=== PATIENT | male | born 1980 ===

== ENCOUNTER 2019-03-14 11:23 | Emergency (ER) | payer OTHER ==
[2019-03-14 11:29] VITALS: TEMP 98.4; O2SAT 100
[2019-03-14] MEDS ORDERED: Iohexol 240 (50 ml) PO STA (12:51)
[2019-03-14] MEDS ORDERED: Iohexol 240 (50 ml) ONE (13:26)
[2019-03-14 13:33] LABS: BASO # 0.1 K/uL (0.0-0.2); BASO % 1.1 % (0.0-2.0); EOS # 0.1 K/uL (0.0-0.7); EOS % 2.1 % (0.0-4.0); HEMOGLOBIN 16.2 g/dL (12.0-18.0); LYMPH # 1.1 K/uL (1.0-4.3); LYMPH % 20.2 % (20.0-40.0); MEAN CELL VOLUME 88.2 fl (80.0-94.0); MEAN CORPUSCULAR HEMOGLOBIN 30.4 pg (27.0-31.0); MEAN CORPUSCULAR HGB CONC 34.5 g/dL (33.0-37.0); MEAN PLATELET VOLUME 9.8 fl (7.2-11.7); MONO # 0.4 K/uL (0.0-0.8); MONO % 6.7 % (0.0-10.0); NEUT # 3.8 K/uL (1.8-7.0); NEUT % 69.9 % (50.0-75.0); NRBC % 0.1 % (0.0-0.0); RBC 5.32 Mil/uL (4.40-5.90); RED CELL DISTRIBUTION WIDTH 12.6 % (11.5-14.5); WHITE BLOOD COUNT 5.5 K/uL (4.8-10.8)
[2019-03-14 13:42] LABS: ALB/GLOB RATIO 1.5 (1.0-2.1); ALBUMIN 4.5 g/dL (3.5-5.0); ALT/SGPT 92 U/L (21-72); AST/SGOT 34 U/L (17-59); BLOOD UREA NITROGEN 10 mg/dl (9-20); CALCIUM 9.3 mg/dL (8.4-10.2); GFR NON-AFRICAN AMERICAN > 60; LIPASE 90 U/L (23-300)
--- NOTE | 2019-03-14 14:51 | ED PDOC ---
HPI: Abdomen Time Seen by Provider: 03/14/19 11:39 Chief Complaint (Nursing): GI Problem Chief Complaint (Provider): abdominal pain and nausea History Per: Patient History/Exam Limitations: no limitations Additional Complaint(s): 38 y/o M with hx of schizophrenia who presents with intermittent abdominal pain for the past 2 months, worse over the past 4 days. Patient states that he had 4 episodes of bright red blood per rectum both in toilet and on toilet paper 4 days ago. STates that he had some pain with defecation and occasionally has constipation. Denies dizziness, SOB, C/P,recent unintentional weight loss. He has had intermittent abdominal pain for the past 2 months that has occurred more frequently for the past 4 days. Also states that he has a little bit of pink area at urethra on his penis. Denies ulceration, hx of STDs. Would like to be tested for HIV. Past Medical History Reviewed: Historical Data, Nursing Documentation, Vital Signs Vital Signs: Last Vital Signs Temp 98.4 F 03/14/19 11:28 Pulse 83 03/14/19 11:28 Resp 15 03/14/19 11:28 BP 142/83 03/14/19 11:28 Pulse Ox 100 03/14/19 11:28 Primary Care Provider: Doctor[facility] - Medical History PMH: Schizophrenia - Surgical History Surgical History: No Surg Hx - Family History Family History: States: Unknown Family Hx - Home Medications Home Medications: Ambulatory Orders Medication Instructions Recorded Docusate Sodium [Colace] 100 mg PO Q8 PRN 7 Days capsule 03/14/19 - Allergies Allergies/Adverse Reactions: Allergies Allergy/AdvReac Type Severity Reaction Status Date / Time No Known Allergies Allergy Verified 03/14/19 11:28 Review of Systems Constitutional: Negative for: Fever, Chills Gastrointestinal: Positive for: Abdominal Pain, Hematochezia. Negative for: Nausea, Vomiting, Diarrhea Physical Exam - Reviewed Nursing Documentation Reviewed: Yes Vital Signs Reviewed: Yes - Physical Exam Appears: Positive for: Non-toxic Skin: Positive for: Normal Color Cardiovascular/Chest: Positive for: Regular Rate, Rhythm Respiratory: Positive for: Normal Breath Sounds Gastrointestinal/Abdominal: Positive for: Soft, Tenderness (RLQ and LLQ on palpation). Negative for: Distended, Guarding, Rebound Male Genital Exam: Negative for: normal genitalia (no ulceration, papules, pustules. Genital and rectal exam performed in the presence of ER weld technician Arsen. ) Rectal: Positive for: Normal Exam, Stool Is Heme: (no stool on exam). Negative for: Black Stool, Blood Streaked Stool (no stool on glove,no hemorrhoids or les ions noted.), Mass - Laboratory Results Result Diagrams: 03/14/19 13:16 03/14/19 13:16 Lab Results: Total Bilirubin 1.1 mg/dl (0.2-1.3) 03/14/19 13:16 AST 34 U/L (17-59) 03/14/19 13:16 ALT 92 U/L (21-72) H 03/14/19 13:16 Alkaline Phosphatase 72 U/L (38-126) 03/14/19 13:16 Total Protein 7.4 G/DL (6.3-8.2) 03/14/19 13:16 Albumin 4.5 g/dL (3.5-5.0) 03/14/19 13:16 Globulin 2.9 gm/dL (2.2-3.9) 03/14/19 13:16 Albumin/Globulin Ratio 1.5 (1.0-2.1) 03/14/19 13:16 Lipase 90 U/L (23-300) 03/14/19 13:16 - ECG O2 Sat by Pulse Oximetry: 100 Medical Decision Making Medical Decision Making: CBC, CMP Rapid HIV Abd/pelvis CT w/ PO and IV contrast Fecal occult blood test if patient able to provide stool. Rapid HIV negative Urine dip: LE, blood and nitrate negative. Abd/Pelvis CT w/ PO and IV contrast: FINDINGS: LOWER THORAX: Unremarkable. LIVER: Unremarkable. No gross lesion or ductal dilatation. GALLBLADDER AND BILE DUCTS: Unremarkable. PANCREAS: Unremarkable. No gross lesion or ductal dilatation. SPLEEN: Unremarkable. ADRENALS: Unremarkable. No mass. KIDNEYS AND URETERS: Unremarkable. No hydronephrosis. No solid mass. VASCULATURE: Unremarkable. No aortic aneurysm. No atherosclerotic calcification or mural plaque present. BOWEL: Unremarkable. No obstruction. No gross mural thickening. APPENDIX: Normal appendix. PERITONEUM: Focal fluid collection adjacent to right inguinal canal, 2.1 cm. No free air. LYMPH NODES: Unremarkable. No enlarged lymph nodes. BLADDER: Unremarkable. REPRODUCTIVE: Unremarkable. Unilateral, left hydrocele. BONES: No acute fracture. OTHER FINDINGS: None. IMPRESSION: No significant or acute findings to account for/ related to the clinical presentation. Additional benign and/or incidental findings described above. Patient and mother informed of all results and recommended to follow up with fruit and vegetable classer for further evaluation. Disposition - Clinical Impression Clinical Impression: Rectal bleed - Patient ED Disposition Is Patient to be Admitted: No Counseled Patient/Family Regarding: Studies Performed, Diagnosis, Need For Followup, Rx Given - Disposition Referrals: Jose Galicia MD [Staff Provider] - Gabriella Boyd MD [Family Provider] - Disposition: Routine/Home Disposition Time: 17:13 Condition: STABLE Additional Instructions: Follow up with your primary care doctor or fruit and vegetable classer for further evaluation of chronic abdominal pain. Use Stool softeners and sitz bath for rectal pain. Return to ER if your symptoms worsen. Prescriptions: Docusate Sodium [Colace] 100 mg PO Q8 PRN 7 Days capsule PRN Reason: Constipation Instructions: Bloody Stools, Adult (DC) Forms: [employer] ([employer]) (Thai) Print Language: L[place]ISH
[2019-03-14] MEDS ORDERED: Sodium Chloride 0.9% 50 ML IV ONE (15:20)
[2019-03-14] MEDS ORDERED: Iohexol 300 100 ML IJ ONE (15:20)
--- NOTE | 2019-03-14 16:04 | CT ---
Date of service: 03/14/2019 PROCEDURE: CT Abdomen and Pelvis with contrast HISTORY: abdominal pain, bloody stool COMPARISON: None TECHNIQUE: Intravenous contrast dose: 95 cc Omnipaque 300 Radiation dose: Total exam DLP = 405.38 MGy-cm. This CT exam was performed using one or more of the following dose reduction techniques: Automated exposure control, adjustment of the mA and/or kV according to patient size, and/or use of iterative reconstruction technique. FINDINGS: LOWER THORAX: Unremarkable. LIVER: Unremarkable. No gross lesion or ductal dilatation. GALLBLADDER AND BILE DUCTS: Unremarkable. PANCREAS: Unremarkable. No gross lesion or ductal dilatation. SPLEEN: Unremarkable. ADRENALS: Unremarkable. No mass. KIDNEYS AND URETERS: Unremarkable. No hydronephrosis. No solid mass. VASCULATURE: Unremarkable. No aortic aneurysm. No atherosclerotic calcification or mural plaque present. BOWEL: Unremarkable. No obstruction. No gross mural thickening. APPENDIX: Normal appendix. PERITONEUM: Focal fluid collection adjacent to right inguinal canal, 2.1 cm. No free air. LYMPH NODES: Unremarkable. No enlarged lymph nodes. BLADDER: Unremarkable. REPRODUCTIVE: Unremarkable. Unilateral, left hydrocele. BONES: No acute fracture. OTHER FINDINGS: None. IMPRESSION: No significant or acute findings to account for/ related to the clinical presentation. Additional benign and/or incidental findings described above.
[2019-03-14 17:13] VITALS: BP 140/80; PULSE 81; RESP 18
== END 2019-03-14 17:10 | disposition home or self-care (01) ==
LOC: H.ER 11:23
DX: K92.1 Melena (principal); Z86.59 Personal history of other mental and behavioral disorders; Z00.8 Encounter for other general examination; Z79.899 Other long term (current) drug therapy
CPT/HCPCS: 74177; 80053; 83690; 85025; 86850; 86900; 87390; 99284; Q9966; Q9967